=== PATIENT | female | born 1945 | race Caucasian/White ===

== ENCOUNTER 2022-03-05 10:00 | Day surgery (SDC) | payer OTHER ==
[~2022-03-05] VITALS: Ht 152.4 cm; Wt 56.7 kg
[~2022-03-05 10:00] MED LIST: ARICEPT5 MG PO; CANDESARTAN CILE8 MG PO; CIPROFLOXACIN750 MG PO; CLONAZEPAM1 MG PO; DOCUSATE SODIU100 MG PO; FLAGYL500MG PO; GABAPENTIN300 MG PO; GABAPENTIN800 MG PO; METHYLPRED4 MG/DOSE- PO; NAMENDA10 MG PO; NEURONTIN PO; PERCOCET 5/3251 TAB PO; PROMETRIUM200 MG PO; SYNTHROID75 MCG PO
== END 2022-03-05 18:20 | disposition home or self-care (01) ==
LOC: CIR.AMB 10:00
PROVIDERS: ATTEND Orthopaedic Surgery
DX: M75.121 Complete rotator cuff tear or rupture of right shoulder, not specified as traumatic (principal); M24.111 Other articular cartilage disorders, right shoulder; M75.21 Bicipital tendinitis, right shoulder; Z20.822 Contact with and (suspected) exposure to COVID-19; Z88.6 Allergy status to analgesic agent; E03.9 Hypothyroidism, unspecified; K21.9 Gastro-esophageal reflux disease without esophagitis